=== PATIENT | female | born 1960 | race Caucasian/White ===

== ENCOUNTER 2017-07-18 17:14 | Emergency (ER) | payer MEDICAID ==
[~2017-07-18] VITALS: Ht 147.3 cm; Wt 99.6 kg
[2017-07-18 17:43] VITALS: BP 161/108
[2017-07-18] MEDS ORDERED: KETOROLAC 30 MG/ML VIAL IVP ONE (20:50)
[2017-07-18] MEDS ORDERED: NACL 0.9% 1,000 ML IV ONE (20:50)
[2017-07-18 21:07] LABS: APPEARANCE,URINE SL CLOUDY (CLEAR); BILIRUBIN,URINE NEGATIVE (NEGATIVE); BLOOD, URINE 3+ (NEGATIVE); COLOR,URINE YELLOW (YELLOW); LEUKOCYTE ESTERASE ,URINE 3+ (NEGATIVE); NITRITE, URINE NEGATIVE (NEGATIVE); UGLUCOSE NEGATIVE (NEGATIVE)
[2017-07-18 21:16] LABS: RBC,URINE 50-80 /HPF (0-5); WBC,URINE 80-100 /HPF (0-5)
[2017-07-18 21:37] LABS: HEMATOCRIT 35.8 % (36-48); HEMOGLOBIN 11.7 g/dL (12.0-16.0); MEAN CORPUSCULAR HEMOGLOBIN 26 pg (27-31); MEAN CORPUSCULAR HGB CONC 33 g/dL (33-37); MEAN CORPUSCULAR VOLUME 79 fL (80-94); PLATELET COUNT (AUTO) 72 K/uL (140-450); RED BLOOD CELL COUNT(AUTO) 4.55 MIL/uL (4.20-5.40); RED CELL DISTRIBUTION WIDTH 17.2 % (11.6-13.7); WHITE BLOOD COUNT (AUTO) 3.6 K/uL (4.8-10.8)
[2017-07-18 21:38] LABS: ANION GAP 13.3 (8-16); BASOPHILS # (AUTO) 0.1 K/uL (0.00-0.22); BASOPHILS % (AUTO) 1.4 % (0.0-2.0); CARBON DIOXIDE 24.9 mmol/L (21-32); CREATININE 2.1 mg/dL (0.6-1.3); EOSINOPHILS # (AUTO) 0.2 K/uL (0-0.4); EOSINOPHILS % (AUTO) 4.6 % (0.0-4.0); LYMPHOCYTES # (AUTO) 0.9 K/uL (2.5-16.5); LYMPHOCYTES % (AUTO) 25.9 % (20.5-51.1); MONOCYTES # (AUTO) 0.4 K/uL (0.8-1.0); NEUTROPHILS % (AUTO) 56.1 % (42.2-75.2); POTASSIUM 4.2 mmol/L (3.5-5.1)
[2017-07-18 21:50] LABS: ALBUMIN 3.1 g/dL (3.4-5.0); TOTAL BILIRUBIN 0.7 mg/dL (0.0-1.0)
[2017-07-18] MEDS ORDERED: cefTRIAXone 1,000 MG VIAL ONE (22:12)
[2017-07-18 23:16] VITALS: BP 135/81
== END 2017-07-18 23:08 | disposition home or self-care (01) ==
LOC: MED 17:14
DX: N39.0 Urinary tract infection, site not specified (principal); Z79.899 Other long term (current) drug therapy; Z91.030 Bee allergy status
CPT/HCPCS: 36415; 74176; 80053; 81001; 85025; 87086; 96365; 96375; 99285; J0696; J1885; J7030; J7060

== ENCOUNTER 2019-04-21 21:28 | Emergency (ER) | payer MEDICAID, OTHER ==
[~2019-04-21] VITALS: Ht 147.3 cm; Wt 86.2 kg
[2019-04-21 21:33] VITALS: BP 112/71
--- NOTE | 2019-04-21 21:48 | NUR ---
PT BIBA BLS C/O ABD CRAMPING, RECTAL BLEEDING, WATERY DIARRHEA, SCANT VAGINAL BLEEDING, AND CHANGE IN APPETITE. ABD SOFT, ROUND, TENDER TO PALP. VISIBLE UMBILICAL HERNIA NOTED. PT STATES UMBILICAL HERNIA PAIN X1 WEEK. PT ATTEND DIALYSIS M/W/F. STATES FEELING "ILL" SINCE DIALYSIS. RR EVEN AND UNLABORED. PT STATES SHE PERMANENTLY RESIDES IN HOTEL ROOM. VSS. MEDHX: RENAL FAILURE, LIVER FAILURE ALLERGIES: NORCO, CIPRO
--- NOTE | 2019-04-21 22:23 | NUR ---
DR ELIAS IN ROOM EXAMINING PT.
[2019-04-21] MEDS ORDERED: ONDANSETRON 4 MG/2 ML VIAL IVP ONE (22:40)
--- NOTE | 2019-04-21 22:45 | NUR ---
PT TAKEN TO CT
--- NOTE | 2019-04-21 23:15 | NUR ---
LAB AT BEDSIDE.
--- NOTE | 2019-04-21 23:20 | NUR ---
PT AMBULATED TO RESTROOM TO PROVIDE URINE SAMPLE
[2019-04-21 23:25] LABS: MEAN CORPUSCULAR HEMOGLOBIN 27 pg (27-31); MEAN CORPUSCULAR HGB CONC 32 g/dL (33-37); MEAN CORPUSCULAR VOLUME 83.7 fL (80-94); RED CELL DISTRIBUTION WIDTH 16.4 % (11.6-13.7); WHITE BLOOD COUNT (AUTO) 6.7 K/uL (4.8-10.8)
[2019-04-21 23:40] LABS: APPEARANCE,URINE CLOUDY (CLEAR); BILIRUBIN,URINE NEGATIVE (NEGATIVE); NITRITE, URINE NEGATIVE (NEGATIVE); PH,URINE 5.5 (5.0-9.0); UGLUCOSE 1+ (NEGATIVE)
[2019-04-21 23:45] LABS: ALBUMIN 2.6 g/dL (3.4-5.0); ANION GAP 14.3 (8-16); POTASSIUM 3.3 mmol/L (3.5-5.1); TOTAL BILIRUBIN 1.2 mg/dL (0.0-1.0)
[2019-04-21 23:47] LABS: CREATININE 4.6 mg/dL (0.6-1.3); PLATELET COUNT (AUTO) 49 K/uL (140-450)
[2019-04-21 23:49] LABS: EOSINOPHILS % (MANUAL) 3 % (0-4); LYMPHOCYTES % (MANUAL) 10 % (20-46); MONOCYTES % (MANUAL) 9 % (5-12)
[2019-04-21 23:53] LABS: BLOOD, URINE 1+ (NEGATIVE); LEUKOCYTE ESTERASE ,URINE 1+ (NEGATIVE)
[2019-04-21 23:54] LABS: COLOR,URINE AMBER (YELLOW); RBC,URINE 11-20 (MOD) /HPF (0-5); WBC,URINE 16-25 (MOD) /HPF (0-5)
[2019-04-21 23:55] LABS: URINE AMORPHOUS URATE 1+ /HPF (None Seen)
--- NOTE | 2019-04-22 00:31 | NUR ---
PT RESTING WITH EYES CLOSED. VISIBLE RISE AND FALL OF CHEST. BED LOCKED AND IN LOW POSITION. VSS.
--- NOTE | 2019-04-22 01:04 | NUR ---
PT REFUSED GUAIAC STOOL TEST
[2019-04-22] MEDS ORDERED: cefTRIAXone 1,000 MG VIAL ONE (01:15)
--- NOTE | 2019-04-22 01:56 | NUR ---
DR ELIAS AT BEDSIDE.
--- NOTE | 2019-04-22 03:35 | NUR ---
PT IN BED WITH EYES CLOSED, VISIBLE RISE AND FALL OF CHEST. NO COMPLAINT OF PAIN AT THIS TIME. VSS. WILL CONTINUE TO MONITOR.
--- NOTE | 2019-04-22 03:50 | NUR ---
patient offered bus pass but she refused at this time.
[2019-04-22 03:51] VITALS: BP 125/73
== END 2019-04-22 03:51 | disposition home or self-care (01) ==
LOC: MED 21:28
DX: N39.0 Urinary tract infection, site not specified (principal); R19.7 Diarrhea, unspecified; K43.9 Ventral hernia without obstruction or gangrene; D64.9 Anemia, unspecified; Z88.1 Allergy status to other antibiotic agents; Z88.5 Allergy status to narcotic agent; Z88.6 Allergy status to analgesic agent
CPT/HCPCS: 36415; 74176; 80053; 81001; 82150; 83690; 85025; 87040; 87086; 87186; 96365; 96375; 99284; J0696; J2405